=== PATIENT | male | born 1960 | race Caucasian/White ===

== ENCOUNTER 2021-01-27 12:08 | Inpatient (IN) | payer OTHER ==
[~2021-01-27] VITALS: Ht 180.3 cm; Wt 173.1 kg
[2021-01-27] VITALS (23 sets, daily range): BP systolic 104–147; BP diastolic 22–118
--- NOTE | ~2021-01-27 | EMS ---
[address] [address] EMS Patient Care Report Name: PAULINE FABIAN Room #: 247-P [facility] IN M.R.#: [id number] Admission: 01/27/21 Attend Phys: Iris Hardin MD Discharge: 01/29/21 Date of : 64 Report #: [id number] THIS REPORT FOR: //name// Report Transmitted: 01/29/2021 13:23 EMS Care Summary [place], [place]/[facility] Incident [id number] @ 01/27/2021 11:26 Incident [address] [place] [address] E2 Patient PAULINE FABIAN Male, 60 Years 1960 Patient Address [address] [place] [address] [address]2 [place] [address] Patient History Kidney/Renal Failure, Chief Complaint Hypotension Disposition Transported [place] Dispatch Reason Sick Person Transported To [facility] Narrative M42 arrived on scene to find the patient lying supine on his bed. snf staff said the patient had been weaker than normal and the blood pressure they had gotten was 60/20. We attempted to feel the patient's radial pulses and were unable to feel anything. Patient was conscious and alert said he had felt weaker today. Patient's sister was on scene and said his urine was very dark and he had been more lethargic than when she had seen him last on . We attempt to take a blood pressure on both arms multiple times and where unable [address] [address] EMS Patient Care Report Name: PAULINE FABIAN Room #: [facility]#: [id number] Admission: 01/27/21 Attend Phys: Iris Hardin MD Discharge: 01/29/21 Date of : 64 Report #: [id number] to get a reading using the zoll monitor. We attempted a manual blood pressure me and my partner but neither of us could hear the patient's blood pressure. Transport was made emergent to the nearest hospital based upon the patient's blood pressure. En route to the hospital no changes in the patient condition occurred. M42 arrived on scene of the hospital and patient care was transferred to the RN. Initial Vitals @11:52 @11:57GCS: 15, @12:01Pain: 0/10,GCS: 15, @11:40P: 71,R: 14,Pain: 0/10,GCS: 15,Glucose: 148,CO: 3,SpO2: 97, @11:50P: 67,R: 16,Pain: 0/10,GCS: 15,SpO2: 97, Assessments @11:37MENTAL:Place Oriented,Person Oriented,Event Oriented,Time Oriented,SKIN:HEENT:Head/Face: No Abnormalities,Neck/Airway: No Abnormalities,LUNG SOUNDS:ABDOMEN:PELVIS//GI:EXTREMITIES:PULSE:Radial: Absent,NEURO:@11:52MENTAL:Event Oriented,Person Oriented,Time Oriented,Place Oriented,SKIN:HEENT:LUNG SOUNDS:ABDOMEN:PELVIS//GI:EXTREMITIES:PULSE:Radial: Absent,NEURO: Impression Hypotension Procedures @11:55Saline Lock 200cc (20 ga) Site: Antecubital-LeftResponse: UnchangedSucceeded@11:37ALS AssessmentResponse: UnchangedSucceeded@11:40Oxygen FlowRate: 4 Device: Nasal Cannula (NC) Response: UnchangedSucceeded Timeline 11:24,Call Received 11:24,Dispatch Notified 11:26,Dispatched 11:28,En Route 11:36,On Scene 11:37,At Patient 11:37,ALS Assessment,Response: UnchangedSucceeded, 11:40,BP: / M,PULSE: 71,RR: 14 R,SPO2: 97 Ox,ETCO2: ,B,PAIN: 0,GCS: 15, 11:40,Oxygen FlowRate: 4 Device: Nasal Cannula (NC) Response: UnchangedSucceeded, 11:50,BP: / M,PULSE: 67,RR: 16 R,SPO2: 97 Ox,ETCO2: ,BG: ,PAIN: 0,GCS: 15, 11:52,BP: / M,PULSE: ,RR: R,SPO2: Ox,ETCO2: ,BG: ,PAIN: ,GCS: , 11:55,Saline Lock 200cc 20 ga Site: Antecubital-Left,Response: UnchangedSucceeded, 11:57,BP: / M,PULSE: ,RR: R,SPO2: Ox,ETCO2: ,BG: ,PAIN: ,GCS: 15, [facility] [address] [place] [address] EMS Patient Care Report Name: PAULINE FABIAN Room #: 247-P [facility] IN M.R.#: [id number] Admission: 01/27/21 Attend Phys: Iris Hardin MD Discharge: 01/29/21 Date of : 64 Report #: [id number] 12:01,Depart Scene 12:01,BP: / M,PULSE: ,RR: R,SPO2: Ox,ETCO2: ,BG: ,PAIN: 0,GCS: 15, 12:04,At Destination 12:13,Call Closed Disclaimer v1.1 Copyright 2020 [employer] This EMS Care Summary contains data elements from the applicable legal record (which may be displayed differently). It is designed to provide pertinent information for the following purposes: continuity of care, clinical quality, and state data reporting. The complete legal record is available to ED staff and administrators of the receiving hospital in [facility]'s Patient Tracker. All data is provided "as is."
--- NOTE | ~2021-01-27 | O ---
[facility] [place] [address] OPERATIVE REPORT Name: PAULINE FABIAN Room #: 247-P [facility] IN ..#: [id number] Admission: 01/27/21 Attend Phys: Iris Hardin MD Discharge: Date of : 64 Report #: [id number] THIS REPORT FOR: cc: Vidal Zamora MD, Christopher B. MD Park,Demar Mercado MD ~ DATE OF SERVICE: 01/28/2021 PREOPERATIVE DIAGNOSIS: Scrotal wound infection. POSTOPERATIVE DIAGNOSIS: Krupa's gangrene. PROCEDURE: Incision and debridement of scrotum. SURGEON: Demar Us MD MEASURING MACHINE OPERATOR: None. ANESTHETIC: General. ESTIMATED BLOOD LOSS: 25 mL. COMPLICATIONS: None. FINDINGS: Necrotizing fasciitis of the scrotum around the right testicle in the midline and a little bit of the left. COMPLICATIONS: None. PACKING: One Kerlix. INDICATIONS: This is a 60-year-old gentleman. He is morbidly obese. He has a sacral decubitus ulcer with necrotic tissue. He was also noted to have scrotal edema and swelling with infection. CT shows soft tissue swelling with no distinct abscess or air in the scrotal area, but clinically concern for underlying soft tissue infection. DESCRIPTION OF PROCEDURE: After informed consent was obtained, the patient ____ he was placed in the lateral position under general anesthetic. Dr. Fox had just completed doing a debridement of the sacral wound with significant necrotic tissue. The perineum was inspected and an incision was made at the base of the scrotum at the midline. There were some small areas of grayish tissue toward the midline right over the anterior part of the scrotum. To get better access. We then put the patient on his back after the sacral wound was packed. The patient was placed in frog leg and then the incision was extended more superiorly exposing the anterior surface of the scrotum. The right scrotal [facility] [address] [place] [address] OPERATIVE REPORT Name: PAULINE FABIAN Cris Room #: 247-P [facility] IN [facility].#: [id number] Admission: 01/27/21 Attend Phys: Iris Hardin MD Discharge: Date of : 64 Report #: [id number] wall had evidence of necrotic tissue consistent with Krupa's gangrene. The tissue was sanabria in color and very soupy. The obvious necrotic tissue was debrided out. The testicle was exposed, so we kept the tunica vaginalis intact. We extended the incision beyond the midline to the left side. The extension there was not as significant. We had cut into the level of the dartos muscle. Finger dissection was felt around to look for any tracking more superiorly. The wound was irrigated and cautery was used for hemostasis. The wound was then packed with a Kerlix. Then, ABD was applied as well as a scrotal support. The patient tolerated the procedure well. The patient sent to recovery room and he will go back to the ICU in critical condition. Plan is for general surgery to take the patient back for dressing change and second look and we will be available to reexamine the scrotal wound as well. By: 2242 2300 Demar Us MD /nt
--- NOTE | ~2021-01-27 | O ---
[facility] [place] [address] OPERATIVE REPORT Name: PAULINE FABIAN Room #: 247-P [facility] IN M.R.#: [id number] Admission: 01/27/21 Attend Phys: Iris Hardin MD Discharge: Date of : 64 Report #: [id number] THIS REPORT FOR: cc: Vidal Zamora MD, Christopher B. MD Patterson,Lew Evans MD ~ DATE OF SERVICE: 01/28/2021 PREOPERATIVE DIAGNOSES: Infected sacral and perineal pressure ulcer. POSTOPERATIVE DIAGNOSES: Infected sacral and perineal pressure ulcer. OPERATION: Debridement of necrotizing soft tissue infection of the genitals, perineum, sacrum. SURGEON: Lew Fox MD ANESTHESIA: General. ESTIMATED BLOOD LOSS: Minimal. SPECIMENS: 1. Deep sacral tissue for culture and sensitivity. 2. Tissue for pathology. DESCRIPTION OF PROCEDURE: After informed consent was obtained, the patient was brought to the operating room and placed supine. SCDs were placed and working, general anesthesia was induced. The patient was then placed in the right lateral decubitus position. The sacrum and the perineum were prepped and draped in the usual sterile fashion. This was an excisional debridement. Depth was down to the bone. I first began debriding away the necrotic tissue in the sacrum. This ulceration was necrotic and measured 20 x 20 cm. Cautery dissection as well as curved Mayos were used to sharply debride away the necrotic tissue. This did extend somewhat into the perineum and all of the debridement was carried out until healthy viable tissue was encountered. The area was then irrigated. I packed the area with Dakin-soaked gauze. Sterile dressings were applied. COMPLICATIONS: None. The patient will stay in the OR to have a procedure with Dr. Us. [facility] [address] [address] OPERATIVE REPORT Name: PAULINE FABIAN Room #: 247-P ADM IN .R.#: [id number] Admission: 01/27/21 Attend Phys: Iris Hardin MD Discharge: Date of : 64 Report #: [id number] DISPOSITION: To ICU in guarded condition. By: 1130 1440 Lew Fox MD /nt
[2021-01-27 12:36] LABS: MCH 31.3 pg (26.0-34.0); MCV 101.1 fL (80.0-100.0); PLATELET COUNT 228 thou/uL (150-400); RBC 2.87 mil/uL (4.50-6.00); RDW 17.8 % (10.5-14.5)
[2021-01-27 12:43] LABS: ANION GAP 15 mmol/L (7-16); BUN 52 mg/dL (7-18); CALCIUM 8.4 mg/dL (8.5-10.1); CHLORIDE 97 mmol/L (98-107); CO2 22 mmol/L (21-32); CREATININE 4.4 mg/dL (0.7-1.3); GLUCOSE 75 mg/dL (74-106); POTASSIUM 3.7 mmol/L (3.5-5.1); SODIUM 134 mmol/L (136-145)
[2021-01-27 12:48] LABS: WBC 43.1 thou/uL (4.0-11.0)
[2021-01-27 12:53] LABS: ALBUMIN 1.7 g/dL (3.4-5.0); LIPASE 264 U/L (73-393); SGOT 188 U/L (15-37); SGPT 70 U/L (30-65); TOTAL BILIRUBIN 2.5 mg/dL (0.2-1.0); TOTAL PROTEIN 5.6 g/dL (6.4-8.2); TROPONIN-I <0.06 ng/mL (<0.06)
[2021-01-27 13:02] LABS: URINE BLOOD 2+ (Negative); URINE GLUCOSE-RANDOM* NEGATIVE (Negative); URINE KETONES TRACE (Negative); URINE PROTEIN (DIPSTICK) 2+ (Negative); URINE SPECIFIC GRAVITY >= 1.030 (1.005-1.035)
[2021-01-27 13:04] LABS: ICTOTEST (BILI CONFIRMATORY) Negative (Negative); URINE BILIRUBIN NEGATIVE (Negative); URINE CLARITY CLOUDY; URINE COLOR BROWN; URINE LEUKOCYTES-REFLEX 1+ (Negative); URINE NITRITE-REFLEX POSITIVE (Negative)
[2021-01-27 13:07] LABS: CASTS None Seen /LPF (None Seen); MUCUS 0-3 Light strn/LPF (None Seen); SQUAMOUS 4-10 Moderate /LPF (0-3)
[2021-01-27 13:08] LABS: CRYSTALS None Seen /LPF (None Seen); YEAST-REFLEX Present (None Seen)
[2021-01-27 13:24] LABS: APTT 59.6 Seconds (24.5-32.8); INR 4.37; PROTIME 44.4 Seconds (10.5-12.1)
[2021-01-27] MEDS ORDERED: ELIQUIS5 MG PO (13:28)
[2021-01-27] MEDS ORDERED: HYDROCODON-ACE1 EAC7 PO (13:28)
[2021-01-27] MEDS ORDERED: TOPROL XL100 MG PO (13:30)
[2021-01-27] MEDS ORDERED: NITROSTAT0.3 MG (13:31)
[2021-01-27] MEDS ORDERED: PAROXETINE HCL20 MG PO (13:32)
[2021-01-27] MEDS ORDERED: SANTYL OINTMENT30 G1 TOP (13:33)
[2021-01-27] MEDS ORDERED: OMEPRAZOLE 20 M20 M1 PO (13:34)
[2021-01-27] MEDS ORDERED: RENAL-VITE TAB0.8 MG PO (13:34)
[2021-01-27] MEDS ORDERED: EZETIMIBE-SIMV1 EAC3 PO (13:34)
[2021-01-27 14:07] LABS: METAMYELOCYTES 2 %; NUCLEATED RBCS 1 /100WBC
[2021-01-27 14:08] LABS: ANISOCYTOSIS 1+
[2021-01-27 14:09] LABS: ABSOLUTE NEUTROPHILS 39.7 thou/uL (1.4-8.2); MYELOCYTES 1 %
[2021-01-27] MEDS ORDERED: AUGMENTIN 500-1 EACH PO (16:11)
[2021-01-27] MEDS ORDERED: ASPERCREME1 EACH TOP (16:11)
[2021-01-27 17:31] LABS: INR 4.38; PROTIME 44.5 Seconds (10.5-12.1)
--- NOTE | 2021-01-27 20:10 | NUR ---
(Addendum): Pt arrived to the ICU unit at 2009
--- NOTE | 2021-01-27 20:24 | NUR ---
RT IJ PLACED
--- NOTE | 2021-01-27 20:35 | NUR ---
Dr. Zamora at bedside for physical examination of body and wounds.
--- NOTE | 2021-01-27 21:10 | NUR ---
Pt arrived via stretcher from ED in fair, but stable condition. Pt alert, but lethargic. Able to answer basic quesions. Afebrile. Monitor showding SR. Levophed infusing at 12mcg/min. MAP 57-65. NS infusing at 126 ml/hr. Pt placed in bed and head to skin skin assessment completed. Significant sacral and scrotal abcesses/wounds, as well as wounds to BLE. Assessment and weight obtained. Orders reviewed and acknowledged. Care plan created per pt specific needs. Adequate oxygen sats on 3L BC. BBS clear, diminished at bases. Phillips, central line and hemodyalysis port intact.
--- NOTE | 2021-01-27 21:33 | NUR ---
Attempted to call [id number] (Abby) to provide update. Unable to reach via telephone. No voicemail. Unable to leave basic voicemail message.
--- NOTE | 2021-01-27 21:46 | NUR ---
Spoke with [id number] (Abby). Update on current health status and current plan of care provided. All questions and concerns addressed at this time.
--- NOTE | 2021-01-27 22:13 | NUR ---
FFP 2/2 for ICU initiated. Transfusions w/o reactions at this time
--- NOTE | 2021-01-27 23:15 | NUR ---
MRSA SWAB AND OBTAINED AND SENT PER ORDER
[2021-01-27 23:18] LABS: PROTIME 22.7 Seconds (10.5-12.1)
[2021-01-27 23:20] LABS: INR 2.16
--- NOTE | 2021-01-27 23:25 | NUR ---
500ml bolus started per order. CVP 17
[2021-01-27 23:37] LABS: APTT 40.7 Seconds (24.5-32.8)
[2021-01-27 23:42] LABS: HEMATOCRIT 29.2 % (42.0-52.0); POLYS 96.7 % (36.0-66.0)
[2021-01-27 23:44] LABS: CALCIUM 8.6 mg/dL (8.5-10.1); CREATININE 4.5 mg/dL (0.7-1.3); POTASSIUM 4.1 mmol/L (3.5-5.1)
[2021-01-27 23:45] LABS: ABSOLUTE NEUTROPHILS 49.5 thou/uL (1.4-8.2); BASOPHILS 0.1 % (0.0-2.0); EOSINOPHILS 0.6 % (0.0-3.0); HEMOGLOBIN 8.8 gm/dL (14.0-18.0); LYMPHOCYTES 2.2 % (24.0-44.0); MCHC 30.1 g/dL (28.0-37.0); MONOCYTES 0.4 % (1.0-8.0); PLATELET COUNT 238 thou/uL (150-400); RBC 2.84 mil/uL (4.50-6.00); RDW 18.3 % (10.5-14.5)
--- NOTE | 2021-01-27 23:45 | NUR ---
PICTURES OF WOUNDS (SACRAL, SCROTUM AND JEANNETTE LEGS) OBTAINED AT THIS TIME. SEE PHOTOS IN CHART
[2021-01-27 23:51] LABS: ALBUMIN 2.2 g/dL (3.4-5.0); TOTAL BILIRUBIN 3.2 mg/dL (0.2-1.0); TOTAL PROTEIN 6.5 g/dL (6.4-8.2)
[2021-01-27 23:55] LABS: WBC 51.2 thou/uL (4.0-11.0)
[2021-01-28] VITALS (91 sets, daily range): BP systolic 11–154; BP diastolic 12–132
--- NOTE | 2021-01-28 00:44 | NUR ---
Additional 2 units of FFP ordered. 1/2 of this order initiated at this time
[2021-01-28 00:54] LABS: BE(vivo) -5.4 mmol/L (-2 to +3); HCO3 18.4 mmol/L (22.0-26.0); PCO2 30.1 mmHg (35.0-45.0); PO2 79.9 mmHg (80.0-100.0); pH 7.405 (7.360-7.450)
[2021-01-28 02:21] LABS: PROTIME 21.1 Seconds (10.5-12.1)
--- NOTE | 2021-01-28 04:35 | NUR ---
ADDITIONAL FFP INFUSION INITIATED. INR LEVEL 2.0 AT THIS TIME.
--- NOTE | 2021-01-28 05:00 | NUR ---
Spoke to [id number] (Abby) on phone. Update on current condition and plan of care provided
[2021-01-28 05:51] LABS: CALCIUM 8.4 mg/dL (8.5-10.1); CREATININE 4.5 mg/dL (0.7-1.3); POTASSIUM 3.8 mmol/L (3.5-5.1)
[2021-01-28 05:52] LABS: HEMOGLOBIN 8.3 gm/dL (14.0-18.0)
[2021-01-28 05:57] LABS: ABSOLUTE NEUTROPHILS 42.9 thou/uL (1.4-8.2); BASOPHILS 0.1 % (0.0-2.0); EOSINOPHILS 4.6 % (0.0-3.0); HEMATOCRIT 26.5 % (42.0-52.0); LYMPHOCYTES 1.8 % (24.0-44.0); MCH 31.4 pg (26.0-34.0); MCHC 31.2 g/dL (28.0-37.0); MCV 100.5 fL (80.0-100.0); MONOCYTES 1.5 % (1.0-8.0); PLATELET COUNT 209 thou/uL (150-400); RBC 2.63 mil/uL (4.50-6.00)
[2021-01-28 06:14] LABS: WBC 46.6 thou/uL (4.0-11.0)
--- NOTE | 2021-01-28 06:19 | NUR ---
FFP INFUSION INITIATED
--- NOTE | 2021-01-28 06:45 | NUR ---
FFP COMPLETE. ORDER TO REDRAW INR PLACED
--- NOTE | 2021-01-28 07:05 | NUR ---
REPORT GIVEN TO ONCOMING RN
[2021-01-28 07:43] LABS: APTT 38.6 Seconds (24.5-32.8); INR 1.88; PROTIME 19.9 Seconds (10.5-12.1)
--- NOTE | 2021-01-28 08:30 | NUR ---
Duvmiu-ff-due Abby called and updated on patient condition. called Dr. Fox to inform of new INR. waiting to hear back at this time.
--- NOTE | 2021-01-28 09:22 | EKG ---
[address] [place] [employer] [address] ELECTROCARDIOGRAM REPORT Name: PAULINE FABIAN Cris Room #: 247-P ADM IN M.R.#: [id number] Admission: 01/27/21 Attend Phys: Iris Hardin MD Discharge: Date of : 64 Report #: [id number] [facility] ED Test Date: 2021-01-27 Test Time: 12:10:20 Pat Name: PAULINE FABIAN Department: Room: 247 Gender: M Cloth Hand: akila : 1960 Requested By: Nico Martin Order Number: [id number] MD: Martinez Thorpe Measurements Intervals Bartlett Rate: 71 P: 79 SC: 176 QRS: 98 QRSD: 132 T: 53 QT: 513 QTc: 558 Interpretive Statements Sinus rhythm Right bundle branch block Baseline wander in lead(s) V2 No previous ECG available for comparison Electronically Signed On 01-28-2021 9:22:08 CDT by Martinez Thorpe [email or web address] <ELECTRONICALLY SIGNED> By: Martinez Thorpe MD, [facility] 01/28/21 0922 1210 1210 Martinez Thorpe MD, FACC /EPI
--- NOTE | 2021-01-28 11:10 | NUR ---
Patient's son, Felipe at bedside, updated on patient condition and plan of care. Patient placed on Bipap once again after eating breakfast due to desaturations in the upper 80s and tachypnea in the 30s. Patient tolerating Bipap well at 65% FiO2.
[2021-01-28 13:45] LABS: HEMATOCRIT 20.9 % (42.0-52.0); MCH 31.2 pg (26.0-34.0); MCHC 29.8 g/dL (28.0-37.0); MCV 104.7 fL (80.0-100.0); RDW 18.7 % (10.5-14.5)
[2021-01-28 13:50] LABS: HEMOGLOBIN 6.2 gm/dL (14.0-18.0); WBC 48.4 thou/uL (4.0-11.0)
--- NOTE | 2021-01-28 13:52 | NUR ---
Patient noted with significan bleeding underneath him. Dr. Fox paged. Dr. Justin on unit, notified and orders for labs received. 1340- Dr. Fox arrived on unit and assessed sacral wound, re-packed area. Order for 2 units of FFP. 1350- Critical Hemoglobin reported to Dr. Hardin, no response. Dr. Justin notified as well, new order for PRBCs received. Patient is awake and answering questions. Levophed titrated to MAP goal. s
[2021-01-28 14:00] LABS: INR 2.56; PROTIME 26.7 Seconds (10.5-12.1)
[2021-01-28 14:10] LABS: CALCIUM 7.2 mg/dL (8.5-10.1); CREATININE 4.3 mg/dL (0.7-1.3); POTASSIUM 3.8 mmol/L (3.5-5.1); TOTAL PROTEIN 5.2 g/dL (6.4-8.2)
[2021-01-28 14:34] LABS: BE(vivo) -10.8 mmol/L (-2 to +3); HCO3 14.5 mmol/L (22.0-26.0); PCO2 29.9 mmHg (35.0-45.0); PO2 83.3 mmHg (80.0-100.0); sO2 95.4 % (92.0-98.0)
[2021-01-28 14:35] LABS: pH 7.303 (7.360-7.450)
[2021-01-28] MEDS ORDERED: JARDIANCE10 MG PO (14:40)
[2021-01-28] MEDS ORDERED: FENOFIBRATE160 MG PO (14:41)
[2021-01-28] MEDS ORDERED: GLIMEPIRIDE4 MG PO (14:41)
[2021-01-28] MEDS ORDERED: KLOR-CON M2020 MEQ PO (14:41)
[2021-01-28 18:21] LABS: BE(vivo) -16.4 mmol/L (-2 to +3); HCO3 9.2 mmol/L (22.0-26.0); PCO2 21.3 mmHg (35.0-45.0); pH 7.252 (7.360-7.450)
--- NOTE | 2021-01-28 18:40 | NUR ---
Patient continues to decline despite FFPs and PRBCs infusing. Levophed titrated up, ABGs critical, pt now on 15L HFNC. Lung sounds remain the same. Patient had hypoglycemic episode in the 60s, still responsive, NPO. Dr. Justin notified. D50 given per protocol. New orders for D5W and Bicarb to be placed. 1910- ER Dr. Stephens here to place arterial line. Time-out performed, injected with 1 ml Lidocaine 1%, see eMAR. Blood return seen and good waveform visualized. Patient tolerated well.
--- NOTE | 2021-01-28 19:10 | NUR ---
Assumed care of patient. ER physician at bedside placing a-line.
--- NOTE | 2021-01-28 19:34 | NUR ---
Bicarb x 3 amps pushed per order. Vasopressin also initiated at non-titratable rate of 0.03 units/min. Will monitor b/p via arterial line. Arterial line corralating with manual cuff
--- NOTE | 2021-01-28 19:44 | NUR ---
Bedside glucose 80. Order for D5W at 75ml/hr rec'd and initiated
--- NOTE | 2021-01-28 19:51 | NUR ---
Paged Dr. Justin regarding pt c/o sacral discomfort. MD to place order for pain medication.
--- NOTE | 2021-01-28 20:14 | NUR ---
Patient's cekbuf-wv-wjh Eva updated on patient condition. All questions answered and updated on plan of care.
[2021-01-28 21:19] LABS: HEMATOCRIT 23.1 % (42.0-52.0); MCH 30.9 pg (26.0-34.0); MCHC 30.3 g/dL (28.0-37.0); RBC 2.26 mil/uL (4.50-6.00); RDW 18.5 % (10.5-14.5)
[2021-01-28 21:35] LABS: APTT 50.1 Seconds (24.5-32.8); INR 2.95; PROTIME 30.5 Seconds (10.5-12.1)
--- NOTE | 2021-01-28 21:54 | NUR ---
NOTIFIED CHINTAN HIGH REGARDING ELEVATED COAGS. NO ORDERS REC'D AT THIS TIME
--- NOTE | 2021-01-28 23:00 | NUR ---
CALLED DR. RAMIREZ'S OFFICE TO NOTIFY HIM OF ELEVATED LACTIC ACID AND WBCS. AWAITING RETURN CALL
--- NOTE | 2021-01-28 23:10 | NUR ---
NOTIFIED QUALITY IMPROVEMENT COORDINATOR Jaron HIGH REGARDING ELEVATED LACTIC ACID, HYPOTENSION AND HGB 7.0. ORDER REC'D TO TRANSFUSE 1 UNIT PRBC AND 1 LITER NS BOLUS
--- NOTE | 2021-01-28 23:43 | NUR ---
PRBC INFUSION INITIATED
--- NOTE | 2021-01-28 23:48 | NUR ---
OXYGEN SATURATION LOW TO MID 80S ON 100% NRB
--- NOTE | 2021-01-28 23:50 | NUR ---
CALLED DR. RICHARDS TO NOTIFY HIM OF PT'S DECLINING CONDITION. AWAITING RETURN CALL
[2021-01-29] VITALS: BP 109/49
--- NOTE | 2021-01-29 | NUR ---
LABS DRAWN AND SENT. CHARGE NURSE (OZZIE) AT BEDSIDE. R.T. NOTIFIED BY CHARGE NURSE TO DO AN ABG.
[2021-01-29 00:05] LABS: HEP B SURFACE Ab(ANTI-HBS Non Reactive (()); HEPATITIS B SURFACE AG Negative (Negative)
--- NOTE | 2021-01-29 00:10 | NUR ---
R.T. AT BEDSIDE FOR ABG. OXYGEN SATS 94-95% ON NRB
[2021-01-29 00:18] LABS: BE(vivo) -20.2 mmol/L (-2 to +3); PO2 161.1 mmHg (80.0-100.0); sO2 98.4 % (92.0-98.0)
[2021-01-29 00:20] LABS: pH 7.092 (7.360-7.450)
--- NOTE | 2021-01-29 00:25 | NUR ---
NOTIFIED DR. RICHARDS REGARDING POOR ABG RESULTS, HYPOTENSION, ANURIA AND ABNORMAL LABS. ORDER REC'D TO GIVE 3 AMPS OF BICARB AND START BICARB GTT
[2021-01-29 00:30] LABS: CALCIUM 6.5 mg/dL (8.5-10.1); CREATININE 4.2 mg/dL (0.7-1.3); POTASSIUM 3.9 mmol/L (3.5-5.1)
[2021-01-29 00:46] LABS: CALCIUM 6.4 mg/dL (8.5-10.1); CREATININE 4.2 mg/dL (0.7-1.3); PHOSPHORUS 6.1 mg/dL (2.6-4.7); POTASSIUM 3.9 mmol/L (3.5-5.1)
[2021-01-29 01:00] VITALS: BP 102/49
--- NOTE | 2021-01-29 01:45 | NUR ---
BICARB GTT INITIATED
[2021-01-29 03:02] VITALS: BP 42/22
[2021-01-29 03:43] LABS: HEMOGLOBIN 7.6 gm/dL (14.0-18.0); MCH 31.4 pg (26.0-34.0); MCHC 30.5 g/dL (28.0-37.0); PLATELET COUNT 189 thou/uL (150-400); RBC 2.43 mil/uL (4.50-6.00); RDW 18.8 % (10.5-14.5)
[2021-01-29 03:46] LABS: CALCIUM 7.9 mg/dL (8.5-10.1); POTASSIUM 4.8 mmol/L (3.5-5.1); WBC 68.1 thou/uL (4.0-11.0)
[2021-01-29 03:49] LABS: CREATININE 5.2 mg/dL (0.7-1.3)
--- NOTE | 2021-01-29 04:35 | NUR ---
FAILED A-LINE. UNABLE TO OBTAIN MANUAL PRESSURE. DR RICHARDS AND DIRECTOR STAGE NOTIFIED. DR RICHARDS ALSO NOTIED OF CONT'D DECLINING RESP STATUS AND OVERALL CONDITION. DR RICHARDS ON THE WAY UP TO HOSPITAL. LEVOPHED INCREASED TO MAX RATE OF 30 MCG/MIN.
[2021-01-29 04:48] LABS: ABSOLUTE NEUTROPHILS 45.6 thou/uL (1.4-8.2); IMMATURE MONONUCLEARS 1 %; METAMYELOCYTES 9 %; MYELOCYTES 3 %; NUCLEATED RBCS 6 /100WBC; PROMYELOCYTES 4 %
[2021-01-29 04:49] LABS: BLASTS 3 %
[2021-01-29 04:52] LABS: ANISOCYTOSIS 2+; MACROCYTES 1+
--- NOTE | 2021-01-29 05:00 | NUR ---
NOTIFIED ROHOJZ-ZO-HIH (MJ) OF SERIOUSNESS OF DECLINING CONDITION. MJ IS ON HER WAY UP TO FACILITY AT THIS TIME
--- NOTE | 2021-01-29 05:50 | NUR ---
DR. RICHARDS AT BEDSIDE TO PLACE DUGLAS SHEEHAN
[2021-01-29 05:53] LABS: HCO3 7.2 mmol/L (22.0-26.0); PO2 321.8 mmHg (80.0-100.0); sO2 99.5 % (92.0-98.0)
[2021-01-29 05:54] LABS: PCO2 24.4 mmHg (35.0-45.0); pH 7.086 (7.360-7.450)
--- NOTE | 2021-01-29 06:20 | NUR ---
BICARB [address] RICHARDS'S VERBAL ORDER
--- NOTE | 2021-01-29 06:20 | NUR ---
WHYYKZ-MW-HZJ (MJ) AT BEDSIDE
--- NOTE | 2021-01-29 06:40 | NUR ---
PT PLACED ON BIPAP PER DR RICHARDS'S VERBAL ORDER
--- NOTE | 2021-01-29 06:40 | NUR ---
NOTIFIED DR. RICHARDS THAT FAMILY HAS REQUESTED THAT THE PT'S CODE STATUS CHANGES TO DNR/DNI IN THE EVENT OF ANY ARREST
--- NOTE | 2021-01-29 07:11 | NUR ---
REPORT GIVEN TO ONCOMING RN. DIALYSIS IN PROGRESS
--- NOTE | 2021-01-29 08:06 | NUR ---
at bedside assessing patient. Spoke to family and they would like to transition to comfort care at this time. Dr. Hardin is being notified
--- NOTE | 2021-01-29 08:26 | NUR ---
Dialysis turned off per anna Gu RN at 0820. Patient taken off of Bipap and placed on 5L NC for comfort as he was trying to take the mask off. PRN Fentanyl given for comfort. Family at bedside.
--- NOTE | 2021-01-29 09:30 | NUR ---
0858- Dr. Hardin at bedside. Ok to turn off drips and make patient full comfort care. 09- Epinephrine, Vasopressin and Levophed drips shut off. 09- Ok to give dose of PRN Fentanyl as we are waiting for pharmacy approval increased dose of ativan and morphine. 0920- Asystole noted to the monitor and arterial line is flat. 2 RNs verified heart tones x1 minute each. No heart sound auscultated. Dr. Hardin notified. Family at bedside at time of . MTN notified, patient is not a candidate for donation. MEN referal number [id number]
--- NOTE | 2021-01-29 09:42 | NUR ---
Nutrition: pt risked for wound however RD deferring assessment as pt is now comfort care.
--- NOTE | 2021-01-29 12:01 | NUR ---
CM to open case and informed that patient had with family this AM at 0920. Did notify Chucho at [facility].
--- NOTE | 2021-01-30 08:48 | HC ---
[facility] [place] [address] CONSULTATION Name: PAULINE FABIAN Cris Room #: 247-P [facility] IN ..#: [id number] Admission: 01/27/21 Attend Phys: Iris Hardin MD Discharge: 01/29/21 Date of : 64 Report #: [id number] THIS REPORT FOR: cc: Vidal Zamora MD, Christopher B. MD Jetmore, Allen B. MD ~ DATE OF SERVICE: 01/28/2021 WOUND CARE CONSULT NOTE REASON FOR CONSULTATION: The patient with end-stage renal disease, diabetes mellitus type 2, morbid obesity and gangrenous necrotizing sacral wound to go to the operating room for debridement by Dr. Fox on 01/28. HISTORY OF PRESENT ILLNESS: The patient is a 60-year-old gentleman with end-stage renal disease, diabetes mellitus type 2, who had been hospitalized at [facility] and then was in a rehabilitation facility, being treated for venous stasis wounds of the legs and for sacral wound. The patient became septic with white blood count of 43, lactate of 8 and hypotensive, has been transferred to [facility] for medical and surgical treatment. He is currently hospitalized in the Intensive Care Unit on broad spectrum IV antibiotics, IV Levophed, getting reversal of anticoagulation with fresh frozen plasma and vitamin K and prepared for surgery by General Surgery and Urology team for necrotizing infection of the sacrum, which may be involving the scrotum as well. PAST MEDICAL PROBLEMS: Diabetes mellitus type 2, end-stage renal disease on hemodialysis, atrial fibrillation on chronic anticoagulation with INR of 4.3, septic shock. ALLERGIES: No known drug allergies. LABORATORY DATA: White blood count 43.1. Sodium 134, potassium 3.7, creatinine 4.4, albumin 1.7, INR 4.3. PHYSICAL EXAMINATION: GENERAL: Shows an ill and septic appearing, morbidly obese gentleman who is responsive. He appears ill. VITAL SIGNS: Blood pressure 102/28, heart rate 78. SKIN: Appears pale. LUNGS: No respiratory distress. ABDOMEN: Super morbidly obese. : Scrotum is very swollen and edematous. There is some discoloration at the base of the scrotum clinically difficult to tell if this represents deep tissue necrosis. The patient was placed in the right lateral decubitus position and it is seen that he has a black necrotic foul smelling area measuring 12 x [address] [address] CONSULTATION Name: PAULINE FABIAN Room #: 247-P [facility] IN ..#: [id number] Admission: 01/27/21 Attend Phys: Iris Hardin MD Discharge: 01/29/21 Date of : 64 Report #: [id number] over the sacral area, which appears to be associated with a chronic wound. Depth is unstageable, but this is frankly black and necrotic and foul smelling and appears to be necrotizing soft tissue infection. The area between the sacrum and the base of scrotum appears uninvolved. However, there is some discoloration at the scrotal base. IMPRESSION: 1. Morbid obesity. 2. Diabetes mellitus type 2 with history of sacral ulcer. 3. End-stage renal disease, on hemodialysis. 4. Septic shock. 5. Atrial fibrillation on chronic anticoagulation. INR 4.3, now being reversed for surgery. 6. Lymphedema of lower extremities. 7. Chronic venous stasis changes with skin discoloration of left leg. 8. Venous stasis changes of right lower extremity with swelling, inflammation, some blister formation and superficial ulcers consistent with chronic venous stasis with ulceration and inflammation. 9. Necrotic sacral wound with black tissue, foul smelling suspicious for necrotizing soft tissue infection constituting a surgical emergency. 10. Scrotal swelling, rule out scrotal soft tissue infection. PLAN: Broad-spectrum antibiotics, reversal of anticoagulation, intensive care unit, fluid and inotropic support. General surgery and urology surgery teams are preparing to take the patient to surgery for sacral debridement and scrotal exploration. For treatment of the right leg I have ordered Silvadene 1%, Xeroform, ABD, Kerlix wrap. Wound care team will follow. <ELECTRONICALLY SIGNED> By: Philip Jones MD 01/30/21 0848 0732 24 Philip Jones MD /nt
--- NOTE | 2021-01-30 15:08 | PATH ---
[facility] [address] [place] [address] PATHOLOGY RPT PROCEDURE Name: PAULINE FABIAN Room #: 247-P [facility] M.R.#: [id number] Admission: 01/27/21 Date of : 64 Discharge: 01/29/21 Report #: [id number] Path Case #: [id number] [facility] Accession Number: [id number] . 01 Material submitted: . sacrum - NECROTIC SACRAL TISSUE . 01 Clinical history: . NECROTIC SACRAL TISSUE, SCROTAL NECROTIZING FASCIATITIS . 02 Diagnosis: Necrotic sacral tissue, debridement: - Skin and subcutaneous tissue with ulceration, fibrinoid degeneration as well as gangrenous necrosis, consistent with wound tissue. (IUV/db; 01/30/2021) LBQ 01/30/2021 1305 Local . 02 Electronically signed: . Funmilayo Lara MD, Pathologist NPI- [id number] . 01 Gross description: . The specimen is received in formalin, labeled "Fabian, Pauline, necrotic sacral tissue" and consists of an unoriented, slightly discoid skin excision (13.0 x 10.0 cm, excised to a depth of 3.4 cm). The epidermis is diffusely sanabria-chavez, dusky and hemorrhagic with minimal unremarkable skin (at most 1%). The surgical margin is inked black. Sectioning reveals dusky, hemorrhagic, and fatty cut surfaces with approximately 85%-95% necrosis. Account Director sections are submitted in A1-A5. (CHEVAK; 01/29/2021) DKA/DKA 01/29/2021 1326 Local . 02 Pathologist provided ICD-10: L98.499, L98.9, I96 . 02 CPT . 853208 Specimen Comment: A courtesy copy of this report has been sent to [phone] Specimen Comment: Report sent to Performed at: [address], [place], [place] [id number] MD Enoch Gutierrez MD Phone: [phone] Performed at: [address] [id number] MD Funmilayo Lara MD Phone: [phone]
== END 2021-01-29 11:12 | DRG 853 ==
LOC: ER 12:08 → ICU 15:33 → EROBS 15:33 → ICU 20:13
PROVIDERS: Emergency Medicine; Internal Medicine Nephrology; Nurse Practitioner Family; Pediatrics; ADMIT Internal Medicine; ATTEND Internal Medicine
PROC: 30233K1 Transfusion of Nonautologous Frozen Plasma into Peripheral Vein, Percutaneous Approach (ICD-10-PCS; 2021-01-27)
PROC: 02HV33Z Insertion of Infusion Device into Superior Vena Cava, Percutaneous Approach (ICD-10-PCS; 2021-01-27)
PROC: 30233N1 Transfusion of Nonautologous Red Blood Cells into Peripheral Vein, Percutaneous Approach (ICD-10-PCS; 2021-01-28)
PROC: 0JB70ZZ Excision of Back Subcutaneous Tissue and Fascia, Open Approach (ICD-10-PCS; 2021-01-28)
PROC: 0JBB0ZZ Excision of Perineum Subcutaneous Tissue and Fascia, Open Approach (ICD-10-PCS; 2021-01-28)
PROC: 5A0935A Assistance with Respiratory Ventilation, Less than 24 Consecutive Hours, High Flow/Velocity Cannula (ICD-10-PCS; 2021-01-28)
PROC: 5A09357 Assistance with Respiratory Ventilation, Less than 24 Consecutive Hours, Continuous Positive Airway Pressure (ICD-10-PCS; principal; 2021-01-29)
PROC: 03HY32Z Insertion of Monitoring Device into Upper Artery, Percutaneous Approach (ICD-10-PCS; principal; 2021-01-29)
PROC: 4A133B1 Monitoring of Arterial Pressure, Peripheral, Percutaneous Approach (ICD-10-PCS; principal; 2021-01-29)
PROC: 5A1D70Z Performance of Urinary Filtration, Intermittent, Less than 6 Hours Per Day (ICD-10-PCS; principal; 2021-01-29)
PROC: 4A133J1 Monitoring of Arterial Pulse, Peripheral, Percutaneous Approach (ICD-10-PCS; principal; 2021-01-29)
DX: A41.9 Sepsis, unspecified organism (principal); N18.6 End stage renal disease; R65.21 Severe sepsis with septic shock; G93.41 Metabolic encephalopathy; I12.0 Hypertensive chronic kidney disease with stage 5 chronic kidney disease or end stage renal disease; Z68.43 Body mass index [BMI] 50.0-59.9, adult; D68.9 Coagulation defect, unspecified; E11.52 Type 2 diabetes mellitus with diabetic peripheral angiopathy with gangrene; I96 Gangrene, not elsewhere classified; T45.511A Poisoning by anticoagulants, accidental (unintentional), initial encounter; N49.2 Inflammatory disorders of scrotum; I95.9 Hypotension, unspecified; E66.01 Morbid (severe) obesity due to excess calories; M10.9 Gout, unspecified; E78.5 Hyperlipidemia, unspecified; E11.22 Type 2 diabetes mellitus with diabetic chronic kidney disease; I48.91 Unspecified atrial fibrillation; I87.8 Other specified disorders of veins; L89.899 Pressure ulcer of other site, unspecified stage; G47.33 Obstructive sleep apnea (adult) (pediatric); N49.3 Fournier gangrene; Z51.5 Encounter for palliative care; Z79.01 Long term (current) use of anticoagulants; Z79.899 Other long term (current) drug therapy; Z74.01 Bed confinement status; Y92.89 Other specified places as the place of occurrence of the external cause; Z99.2 Dependence on renal dialysis; Z20.822 Contact with and (suspected) exposure to COVID-19
CPT/HCPCS: 10078; 32100; 50010; 50101; 50386; 50403; 50455; 62110; 62900; 65040; 65130; 85026; 85076